=== PATIENT | female | born 1940 | race Two or more races ===

== ENCOUNTER → 2018-11-11 | Emergency (ER) | payer MEDICARE, OTHER ==
[~2018-11-11] VITALS: Ht 160 cm; Wt 59.0 kg
[~2018-11-11] MED LIST: NORCO 10-325 T1 EACH ORAL; RIFAMPIN300 MG PO
--- NOTE | 2018-11-11 21:00 | NUR ---
ED Nurse Note: Patient walk in c/o abnormal labs. Patient had labs run this morning. Patient's potassium level was 6.4. Patient has PICC line in right upper arm. Pt is AO x 4times, VSS, on room air no distress. ERMD seen Pt at bedside.
--- NOTE | 2018-11-11 21:15 | NUR ---
ED Nurse Note: Blood sample sent to lab.
[2018-11-11 21:17] VITALS: BP 120/71
[2018-11-11 21:24] LABS: BASOPHILS % (AUTO) 1.1 % (0.0-2.0); EOSINOPHILS % (AUTO) 1.5 % (0.0-3.0); HEMATOCRIT 28.1 % (37.0-47.0); LYMPHOCYTES % (AUTO) 24.1 % (20.0-45.0); MEAN CORPUSCULAR VOLUME 87 FL (80-99); MONOCYTES % (AUTO) 10.7 % (1.0-10.0); NEUTROPHILS % (AUTO) 62.6 % (45.0-75.0); PLATELET COUNT 196 K/UL (150-450); RED BLOOD COUNT 3.24 M/UL (4.20-5.40); RED CELL DISTRIBUTION WIDTH 14.9 % (11.6-14.8); WHITE BLOOD COUNT 6.6 K/UL (4.8-10.8)
[2018-11-11 21:44] LABS: ANION GAP 8 mmol/L (5-15); BLOOD UREA NITROGEN 20 mg/dL (7-18); CALCIUM 8.2 MG/DL (8.5-10.1); CARBON DIOXIDE 25 MMOL/L (21-32); CHLORIDE 102 MMOL/L (98-107); CREATININE 1.2 MG/DL (0.55-1.30); POTASSIUM 4.2 MMOL/L (3.5-5.1); SODIUM 135 MMOL/L (136-145)
[2018-11-11 22:02] LABS: ALANINE AMINOTRANSFERASE 13 U/L (12-78); ALBUMIN/GLOBULIN RATIO 0.5 (1.0-2.7); ALKALINE PHOSPHATASE 117 U/L (46-116); ASPARTATE AMINO TRANSFERASE 19 U/L (15-37); BILIRUBIN,TOTAL 0.2 MG/DL (0.2-1.0)
[2018-11-11 22:18] VITALS: BP 118/74
--- NOTE | 2018-11-11 22:19 | NUR ---
ER DISCHARGE NOTE: Patient is cleared to be discharged per ERMD, pt is aox4, on room air, with stable vital signs. pt;s daughter was given dc and prescription instructions, daughter was able to verbalize understanding, pt id band and removed without complications. pt is able to ambulate with steady gait with walker. pt took all belongings with daughter.
[2018-11-11 22:21] VITALS: BP 118/74
--- NOTE | 2018-11-11 22:36 | Emergency Room Report ---
History of Present Illness General Chief Complaint: Abnormal Labs Source: Patient Present Illness HPI 78-year-old female presents ED for evaluation. Patient referred for abnormal labs. Had labs drawn today which showed potassium 6.4. Patient has no complaints. Denies chest pain or shortness denies any prior history of hyperkalemia. Denies any kidney problems. Has a PICC line in place and is receiving antibiotics for a knee infection. Being managed by a doctor at [facility]. Denies any pain. Denies any fevers or chills. No other aggravating relieving factors. Denies any other associated symptoms Allergies: Coded Allergies: No Known Allergies (Verified Allergy, Severe, 05/09/09) Patient History Past Medical History: none Past Surgical History: other - knee surgery Pertinent Family History: none Social History: Denies: smoking, alcohol use, drug use Last Menstrual Period: IMAN Now: No Immunizations: UTD Reviewed Nursing Documentation: PMH: Agreed; PSxH: Agreed Nursing Documentation-PMH Past Medical History: No History, Except For Hx Gastrointestinal Problems: No - liver cirrhosis Review of Systems All Other Systems: negative except mentioned in HPI Physical Exam Vital Signs Date Time Temp Pulse Resp B/P (MAP) Pulse Ox O2 Delivery O2 Flow Rate FiO2 11/11/18 20:50 98.4 95 16 112/67 95 Room Air Sp02 EP Interpretation: reviewed, normal General Appearance: no apparent distress, alert, GCS 15, non-toxic Head: normocephalic, atraumatic Eyes: bilateral eye normal inspection, bilateral eye PERRL ENT: hearing grossly normal, normal pharynx, no angioedema, normal voice Neck: full range of motion, supple/symm/no masses Respiratory: chest non-tender, lungs clear, normal breath sounds, speaking full sentences Cardiovascular #1: regular rate, rhythm, no edema Cardiovascular #2: 2+ carotid (R), 2+ carotid (L), 2+ radial (R), 2+ radial (L) , 2+ dorsalis pedis (R), 2+ dorsalis pedis (L) Gastrointestinal: normal bowel sounds, non tender, soft, non-distended, no guarding, no rebound Rectal: deferred Genitourinary: normal inspection, no CVA tenderness Musculoskeletal: back normal, gait/station normal, normal range of motion, non- tender Neurologic: alert, oriented x3, responsive, motor strength/tone normal, sensory intact, speech normal Psychiatric: judgement/insight normal, memory normal, mood/affect normal, no suicidal/homicidal ideation Reflexes: 3+ bicep (R), 3+ bicep (L), 3+ tricep (R), 3+ tricep (L), 3+ knee (R) , 3+ knee (L) Skin: normal color, no rash, warm/dry, well hydrated Lymphatic: no adenopathy Medical Decision Making Diagnostic Impression: Primary Impression: Abnormal laboratory test result ER Course Hospital Course 78 yo F presents to ED for abnomal labs. K 6.4 on labs drawn today Differential diagnoses include: MN/unstable angina, V. tach, bradycardia, hyperkalemia Clinical course Patient placed on stretcher. on site monitor. After initial history and physical I ordered labs, EKG labs reviewed- potassium 4.2. electrolytes ok, trop negative. Hemoglobin/ hematocrit normal. EKG - NSR, no acute ischemic changes inteprreted by me Discussed findings with patient. Reassurance given. No further intervention at this time. I explained to patient and family that lab values can fluctuate. No history of renal disease. No ischemic changes on EKG. Safe for discharge close outpatient follow-up. We'll provide copies of labs for patient to take to her PMD I. I feel this is a highly complex case requiring extensive working including EKG/Rhythm strip, Xray/CT/US, Blood/urine lab work, repeat exams while in ED, and administration of strong opiates/narcotics for pain control, admission to hospital or close patient follow up. Diagnosis - abnormal lab result Stable and discharged to home with copy of labs. Follow-up with PMD. Return to ED if symptoms recur or worsen Labs Test 11/11/18 21:10 White Blood Count 6.6 K/UL (4.8-10.8) Red Blood Count 3.24 M/UL (4.20-5.40) Hemoglobin 9.0 G/DL (12.0-16.0) Hematocrit 28.1 % (37.0-47.0) Mean Corpuscular Volume 87 FL (80-99) Mean Corpuscular Hemoglobin 27.9 PG (27.0-31.0) Mean Corpuscular Hemoglobin Concent 32.1 G/DL (32.0-36.0) Red Cell Distribution Width 14.9 % (11.6-14.8) Platelet Count 196 K/UL (150-450) Mean Platelet Volume 6.8 FL (6.5-10.1) Neutrophils (%) (Auto) 62.6 % (45.0-75.0) Lymphocytes (%) (Auto) 24.1 % (20.0-45.0) Monocytes (%) (Auto) 10.7 % (1.0-10.0) Eosinophils (%) (Auto) 1.5 % (0.0-3.0) Basophils (%) (Auto) 1.1 % (0.0-2.0) Sodium Level 135 MMOL/L (136-145) Potassium Level 4.2 MMOL/L (3.5-5.1) Chloride Level 102 MMOL/L (98-107) Carbon Dioxide Level 25 MMOL/L (21-32) Anion Gap 8 mmol/L (5-15) Blood Urea Nitrogen 20 mg/dL (7-18) Creatinine 1.2 MG/DL (0.55-1.30) Estimat Glomerular Filtration Rate mL/min (>60) Glucose Level 112 MG/DL (74-106) Calcium Level 8.2 MG/DL (8.5-10.1) Total Bilirubin 0.2 MG/DL (0.2-1.0) Aspartate Amino Transf (AST/SGOT) 19 U/L (15-37) Alanine Aminotransferase (ALT/SGPT) 13 U/L (12-78) Alkaline Phosphatase 117 U/L (46-116) Troponin I 0.000 ng/mL (0.000-0.056) Total Protein 8.6 G/DL (6.4-8.2) Albumin 3.0 G/DL (3.4-5.0) Globulin 5.6 g/dL Albumin/Globulin Ratio 0.5 (1.0-2.7) EKG Diagnostic Results Rate: normal Rhythm: NSR ST Segments: no acute changes ASA given to the pt in ED: No Rhythm Strip Diag. Results EP Interpretation: yes Rhythm: NSR, no PVC's, no ectopy Last Vital Signs Date Time Temp Pulse Resp B/P (MAP) Pulse Ox O2 Delivery O2 Flow Rate FiO2 11/11/18 22:21 98.2 72 18 118/74 97 Room Air Status: improved Disposition: HOME, SELF-CARE Condition: Stable Patient Instructions: Hyperkalemia, [id number] Damian Manzo MD Nov 11, 2018 22:36
== END | disposition home or self-care (01) ==
LOC: EMR 21:07
DX: R79.89 Other specified abnormal findings of blood chemistry (principal)
CPT/HCPCS: 36415; 80053; 84484; 85025; 93005; 99283

== ENCOUNTER 2019-02-23 12:01 | Emergency (ER) | payer MEDICARE, MEDICAID ==
[~2019-02-23] VITALS: Ht 152.4 cm; Wt 61.2 kg
[2019-02-23] MEDS ORDERED: LINZESS145 MCG PO (12:17)
[2019-02-23] MEDS ORDERED: MIRALAX17 G2 ORAL (12:17)
[2019-02-23] MEDS ORDERED: Fleet's Enema 133ml RECTAL ONE (12:30)
[2019-02-23] MEDS ORDERED: Isovue-300 100ml vial INJ PRN (13:00)
--- NOTE | 2019-02-23 13:06 | NUR ---
ED Nurse Note: Pt came in from home due to constipation x 5 days, abdominal and back discomfort 5/10 christiano. AOx4, VSS. Will cont to monitor.
[2019-02-23 13:23] VITALS: BP 119/76
[2019-02-23 13:31] LABS: EOSINOPHILS % (AUTO) 0.3 % (0.0-3.0); HEMATOCRIT 36.5 % (37.0-47.0); HEMOGLOBIN 11.9 G/DL (12.0-16.0); LYMPHOCYTES % (AUTO) 20.1 % (20.0-45.0); MEAN CORPUSCULAR VOLUME 88 FL (80-99); MONOCYTES % (AUTO) 8.4 % (1.0-10.0); NEUTROPHILS % (AUTO) 70.2 % (45.0-75.0); PLATELET COUNT 166 K/UL (150-450); RED BLOOD COUNT 4.15 M/UL (4.20-5.40); RED CELL DISTRIBUTION WIDTH 13.6 % (11.6-14.8); WHITE BLOOD COUNT 8.1 K/UL (4.8-10.8)
--- NOTE | 2019-02-23 13:36 | Emergency Room Report ---
History of Present Illness General Chief Complaint: Constipation Source: Patient Present Illness HPI 79-year-old female with history of left knee surgery here complaining of 5 days of constipation and abdominal pain. Patient reports that she has been taking Colace, enema, and MiraLAX and has been able to get the small pellets of nonbloody stool out today. Patient denies nausea vomiting, fever and chills. 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 Patient denies recent travel, exposure to tuberculosis, bloody emesis or hemoptysis. Patient is rating the abdominal pain 7 out of 10, without radiation denies urinary symptoms other than orange discoloration of urine secondary to rifampin which patient is aware of. Denies chest pain, shortness of breath, palpitation, dizziness and headache. Reports that she does have a good fiber intake and eats a lot of beans Allergies: Coded Allergies: No Known Allergies (Verified Allergy, Severe, 05/09/09) Patient History Past Medical History: see triage record Past Surgical History: unable to obtain Pertinent Family History: none Now: No Immunizations: UTD Reviewed Nursing Documentation: PMH: Agreed; PSxH: Agreed Nursing Documentation-PMH Past Medical History: No History, Except For Hx Gastrointestinal Problems: No - liver cirrhosis Review of Systems All Other Systems: negative except mentioned in HPI Physical Exam Vital Signs Date Time Temp Pulse Resp B/P (MAP) Pulse Ox O2 Delivery O2 Flow Rate FiO2 02/23/19 12:06 98.2 93 18 114/73 (87) 98 Room Air Sp02 EP Interpretation: reviewed, normal General Appearance: normal inspection, well appearing, no apparent distress, alert, GCS 15 Head: normocephalic, atraumatic Eyes: bilateral eye normal inspection, bilateral eye PERRL ENT: normal ENT inspection, hearing grossly normal, normal pharynx Neck: normal inspection, full range of motion, supple, thyroid normal, no meningismus Respiratory: normal inspection, chest non-tender, lungs clear, no rhonchi, no wheezing Cardiovascular #1: normal inspection, normal peripheral pulses, regular rate, rhythm, no edema, no murmur Gastrointestinal: no mass, no organomegaly, no peritonitis, no bruit, non- distended, no pulsatile mass, guarding - epigastric Rectal: deferred Genitourinary: no CVA tenderness Neurologic: normal inspection, alert, oriented x3 Psychiatric: normal inspection, judgement/insight normal Skin: normal inspection, normal color, no rash, warm/dry, other - no jaundice Lymphatic: normal inspection, no adenopathy Medical Decision Making PA Attestation All my diagnosis and treatment plans were reviewed ad discussed with my supervising physician Dr. Feliz Diagnostic Impression: Primary Impression: Diverticulosis Additional Impression: Constipation ER Course 79-year-old female with history of left knee surgery here complaining of 5 days of constipation and abdominal pain. Patient reports that she has been taking Colace, enema, and MiraLAX and has been able to get the small pellets of nonbloody stool out today. Patient denies nausea vomiting, fever and chills. 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 Patient denies recent travel, exposure to tuberculosis, bloody emesis or hemoptysis. Patient is rating the abdominal pain 7 out of 10, without radiation denies urinary symptoms other than orange discoloration of urine secondary to rifampin which patient is aware of. Denies chest pain, shortness of breath, palpitation, dizziness and headache. Reports that she does have a good fiber intake and eats a lot of beans Ddx considered but are not limited to: appendicitis, cholycisitis, gastritis, gasthroentritis, UTI, pylonephritis, SBO, diverticulitis, influenza with GI manifestation,constipation uncomplicated, metastatic cancer, colon cancer Vital signs: are WNL, pt. is afebrile H&PE are most consistent with: Diverticulosis, constipation unspecified ORDERS: abdominal CT with contrast, abdominal pain set, CXR, colace ED INTERVENTIONS: enema DISCHARGE: At this time pt. is stable for d/c to home. Will provide printed patient care instructions, and any necessary prescriptions. Care plan and follow up instructions have been discussed with the patient prior to discharge. Follow-up with a glass washer increase fiber intake Chest X-Ray Diagnostic Results Chest X-Ray Diagnostic Results : Chest X-Ray Ordered: Yes # of Views/Limited/Complete: 2 View Indication: Other - r/o tb EP Interpretation: Yes PA Xray: Interpretation reviewed, by supervising MD, and agrees with findings. Interpretation: no consolidation, no effusion, no pneumothorax Impression: No acute disease Electronically Signed by: renee abrams pa-c CT/MRI/US Diagnostic Results CT/MRI/US Diagnostic Results : Imaging Test Ordered: CT abdomen with contrast Impression Diverticulosis no sign of diverticulitis constipation and impaction of rectum Last Vital Signs Date Time Temp Pulse Resp B/P (MAP) Pulse Ox O2 Delivery O2 Flow Rate FiO2 02/23/19 13:23 98.2 79 20 119/76 98 Room Air Disposition: HOME, SELF-CARE Condition: Stable Patient Instructions: Constipation, Adult Additional Instructions: Follow-up with a glass washer drink a lot of fluids eat a lot of fiber Renee Valentin Feb 23, 2019 13:36
[2019-02-23 13:52] LABS: ANION GAP 8 mmol/L (5-15); BLOOD UREA NITROGEN 17 mg/dL (7-18); CALCIUM 8.8 MG/DL (8.5-10.1); CARBON DIOXIDE 25 MMOL/L (21-32); CHLORIDE 102 MMOL/L (98-107); CREATININE 0.8 MG/DL (0.55-1.30); POTASSIUM 4.2 MMOL/L (3.5-5.1); SODIUM 135 MMOL/L (136-145)
[2019-02-23 13:57] LABS: ALANINE AMINOTRANSFERASE 13 U/L (12-78); ALBUMIN 3.3 G/DL (3.4-5.0); ALBUMIN/GLOBULIN RATIO 0.8 (1.0-2.7); ALKALINE PHOSPHATASE 127 U/L (46-116); ASPARTATE AMINO TRANSFERASE 16 U/L (15-37); BILIRUBIN,TOTAL 0.6 MG/DL (0.2-1.0)
[2019-02-23 14:00] LABS: APPEARANCE,URINE CLEAR; BILIRUBIN, URINE NEGATIVE (NEGATIVE); GLUCOSE, URINE (UA) NEGATIVE (NEGATIVE); KETONES,URINE NEGATIVE (NEGATIVE); LEUKOCYTE ESTERASE ,URINE 1+ (NEGATIVE); NITRITE,URINE NEGATIVE (NEGATIVE); PH,URINE 5 (4.5-8.0); PROTEIN,URINE NEGATIVE (NEGATIVE); UROBILINOGEN,URINE NORMAL MG/DL (0.0-1.0)
[2019-02-23 14:21] LABS: COLOR,URINE YELLOW
--- NOTE | 2019-02-23 15:36 | Diagnostic Imaging Report ---
Clinical Indication: Constipation and abdominal pain Technique: No oral contrast utilized, per emergency room physician request IV administration nonionic contrast. Venous phase spiral acquisition obtained through the abdomen and pelvis. Multiplanar reconstructions were generated. Total dose length product 636.53 mGycm. CTDIvol(s) 14.12 mGy. Dose reduction achieved using automated exposure control Comparison: none Findings: The appendix is normal. There is colonic diverticulosis. No evidence of diverticulitis. Small to moderate amount of retained fecal material is demonstrated throughout the colon. There is mild rectal distention by feces. Rectal diameter 5.6 cm. No small bowel distention. No free or loculated intraperitoneal gas or fluid is evident. The distal esophagus, stomach, duodenum are unremarkable. The liver demonstrates suggestively nodular contour in the inferior right hepatic lobe. The gallbladder is not visualized, presumably surgically absent. No biliary ductal dilatation demonstrated. The pancreas, spleen, adrenals are unremarkable. The left kidney is slightly atrophic with cortical scarring. The right kidney demonstrates a subcentimeter low-attenuation lesion which is too small to characterize. No ureteral calculi, hydronephrosis, or hydroureter. The uterus is not visualized, presumed surgically absent. There is a right hip prosthesis. This throws off streak artifact which could obscure pathology in the pelvis. There is a superior endplate compression fracture deformity of the L5 vertebral body. There are degenerative changes of the lumbar spine. The included lung bases demonstrate posterior dependent atelectatic changes. The heart is borderline enlarged. Impression: Mild distention of the rectum by feces, could indicate a mild degree of rectal fecal impaction Mild to moderate retained feces, could be related to stated clinical history of constipation No definite acute abnormality Colonic diverticulosis. No evidence of diverticulitis Normal appendix Suggested nodular contour the inferior right hepatic lobe, could indicate cirrhotic changes. Correlate with clinical history and laboratory findings Evidence of prior cholecystectomy and hysterectomy, right hip prosthesis L5 superior endplate compression fracture deformity, acuity indeterminate. Consider MRI for better characterization if clinically relevant Posterior dependent pulmonary atelectatic changes Subcentimeter right renal low-attenuation lesion, too small to characterize, most likely benign simple cysts. No further follow-up necessary The CT scanner at [facility] is accredited by the [employer] and the scans are performed using protocols designed to limit radiation exposure to as low as reasonably achievable to attain images of sufficient resolution adequate for diagnostic evaluation.
[2019-02-23] MEDS ORDERED: COLACE100 MG ORAL (15:52)
[2019-02-23 15:58] VITALS: BP_SYST 120; BP_SYST 121; BP_DIAS 68; BP_DIAS 78
--- NOTE | 2019-02-23 16:00 | NUR ---
ER DISCHARGE NOTE: Patient is cleared to be discharged per ERMD, pt is aox4, on room air, with stable vital signs. pt was given dc and prescription instructions, pt was able to verbalize understanding, pt id band and iv site removed without complications. pt is able to ambulate with steady gait. pt took all belongings.
--- NOTE | 2019-02-23 16:44 | Diagnostic Imaging Report ---
Indication: Cough Technique: 2 views of the chest Comparison: None Findings: The lungs and pleural spaces are clear. The heart size is normal. The aorta is tortuous and calcified. Impression: Negative
== END 2019-02-23 15:58 | disposition home or self-care (01) ==
LOC: EMR 15:40
DX: K57.90 Diverticulosis of intestine, part unspecified, without perforation or abscess without bleeding (principal); K59.00 Constipation, unspecified; K74.60 Unspecified cirrhosis of liver
CPT/HCPCS: 36415; 71046; 74177; 80053; 81001; 83690; 85025; 99284; Q9967